=== PATIENT | female | born 1980 | race Caucasian/White ===

== ENCOUNTER 2017-07-04 07:15 | Day surgery (SDC) | payer MEDICAID, OTHER ==
[2017-07-04 08:41] LABS: ADD MAN DIFF? NO
[2017-07-04 08:43] LABS: BASOPHIL # 0.1 10^3/ul (0.0-0.1); BASOPHILS % 0.5 % (0.0-2.0); EOSINOPHILS # 1.4 10^3/ul (0.0-0.5); EOSINOPHILS % 6.5 % (0.0-7.0); HEMATOCRIT 40.4 % (37.0-47.0); HEMOGLOBIN 13.7 g/dl (12.0-16.0); LYMPHOCYTES # 4.2 10^3/ul (0.8-2.9); LYMPHOCYTES % 19.5 % (15.0-51.0); MEAN CORPUSCULAR HEMOGLOBIN 30.9 pg (29.0-33.0); MEAN CORPUSCULAR HGB CONC 33.9 g/dl (32.0-37.0); MEAN PLATELET VOLUME 11.4 fl (7.4-10.4); MONOCYTES % 4.9 % (0.0-11.0); NEUTROPHIL # 14.6 10^3/ul (1.6-7.5); NEUTROPHILS % 68.2 % (39.0-77.0); PLATELET COUNT 281 10^3/UL (140-415); RED BLOOD COUNT 4.44 10^6/ul (4.20-5.40); RED CELL DISTRIBUTION WIDTH 13.2 % (11.5-14.5)
[2017-07-04 08:43] LABS: WHITE BLOOD COUNT 21.3 10^3/ul (4.8-10.8)
[2017-07-04 09:51] LABS: ADD MAN DIFF? NO; BASOPHIL # 0.1 10^3/ul (0.0-0.1); BASOPHILS % 0.4 % (0.0-2.0); EOSINOPHILS # 0.8 10^3/ul (0.0-0.5); EOSINOPHILS % 4.2 % (0.0-7.0); HEMATOCRIT 35.4 % (37.0-47.0); HEMOGLOBIN 11.9 g/dl (12.0-16.0); LYMPHOCYTES # 3.4 10^3/ul (0.8-2.9); MEAN CORPUSCULAR HEMOGLOBIN 30.5 pg (29.0-33.0); MEAN CORPUSCULAR HGB CONC 33.6 g/dl (32.0-37.0); MEAN CORPUSCULAR VOLUME 90.8 fl (82.0-101.0); MONOCYTE # 0.8 10^3/ul (0.3-0.9); MONOCYTES % 4.2 % (0.0-11.0); NEUTROPHIL # 14.6 10^3/ul (1.6-7.5); NEUTROPHILS % 73.7 % (39.0-77.0); PLATELET COUNT 224 10^3/UL (140-415); RED CELL DISTRIBUTION WIDTH 13.2 % (11.5-14.5)
[2017-07-04 09:51] LABS: WHITE BLOOD COUNT 19.7 10^3/ul (4.8-10.8)
[2017-07-04] MEDS: SODIUM CHLORIDE 0.9% 1L BAG IV* (09:57)
[2017-07-04] MEDS ORDERED: NACL 0.9% 3 ML SYG IV ×2 (10:00→13:00)
[2017-07-04 10:07] LABS: INR 1.01; PROTIME 13.4 Sec (11.9-14.9)
[2017-07-04] MEDS: CEFAZOLIN 2 GM/50 ML (PMX) 50 ML IVPB ×3 (10:13→21:30)
[2017-07-04 10:15] LABS: LACTIC ACID 1.5 mmol/L (0.5-2.0)
[2017-07-04 10:17] LABS: ANION GAP 16 (8-16); BLOOD UREA NITROGEN 9 mg/dl (7-20); CALCIUM 8.6 mg/dl (8.4-10.2); CARBON DIOXIDE 24 mmol/L (21-31); CHLORIDE 108 mmol/L (97-110); CREATININE 0.63 mg/dl (0.44-1.00); GLUCOSE 114 mg/dl (70-220); POTASSIUM 3.8 mmol/L (3.5-5.1); SODIUM 144 mmol/L (135-144)
[2017-07-04] MEDS ORDERED: HYDROmorphONE (0.2 MG/ML) 10ML SYG IV ×3 (10:30)
[2017-07-04] MEDS ORDERED: EPHEDrine SULFATE 50 MG/5 ML SYG IV (10:30)
[2017-07-04] MEDS ORDERED: MEPERIDINE 25 MG INJ IV (10:30)
[2017-07-04] MEDS ORDERED: DIPHENHYDRAMINE 50 MG INJ IV (10:30)
[2017-07-04] MEDS ORDERED: ONDANSETRON 4 MG INJ IV ×2 (10:30→13:00)
[2017-07-04] MEDS ORDERED: PROPOFOL 20 ML (10:43)
[2017-07-04] MEDS ORDERED: MIDAZOLAM 1 MG/ML 2 ML INJ (10:43)
[2017-07-04] MEDS ORDERED: METOCLOPRAMIDE 10 MG INJ (10:43)
[2017-07-04] MEDS ORDERED: ONDANSETRON 4 MG INJ (10:44)
[2017-07-04] MEDS ORDERED: KETOROLAC 30 MG INJ (10:44)
[2017-07-04] MEDS ORDERED: ETOMIDATE 20 MG INJ (10:56)
[2017-07-04] MEDS ORDERED: PHENYLephrine (100 MCG/ML) 5ML SYG ×3 (10:57→11:33)
[2017-07-04] MEDS ORDERED: FENTAnyl 50 MCG/ML VIAL (10:57)
[2017-07-04] MEDS ORDERED: ALBUMIN HUMAN 25% 100 ML (11:08)
[2017-07-04] MEDS ORDERED: HYDROCODONE/APAP (5/325) TAB PO (13:00)
[2017-07-04] MEDS ORDERED: IBUPROFEN 600 MG TAB PO (13:00)
[2017-07-04] MEDS ORDERED: DOCUSATE SODIUM 100 MG CAP PO (13:00)
[2017-07-04] MEDS: LACTATED RINGER'S 1,000 ML IV ×3 (13:06→21:30)
[2017-07-04 14:47] LABS: LACTIC ACID 1.3 mmol/L (0.5-2.0)
[2017-07-04 17:11] LABS: ADD MAN DIFF? NO
[2017-07-04 17:14] LABS: WHITE BLOOD COUNT 15.1 10^3/ul (4.8-10.8)
[2017-07-04 17:14] LABS: BASOPHIL # 0.1 10^3/ul (0.0-0.1); BASOPHILS % 0.5 % (0.0-2.0); EOSINOPHILS # 0.5 10^3/ul (0.0-0.5); EOSINOPHILS % 3.1 % (0.0-7.0); HEMATOCRIT 25.7 % (37.0-47.0); HEMOGLOBIN 8.7 g/dl (12.0-16.0); LYMPHOCYTES # 3.4 10^3/ul (0.8-2.9); LYMPHOCYTES % 22.2 % (15.0-51.0); MEAN CORPUSCULAR HEMOGLOBIN 30.9 pg (29.0-33.0); MEAN CORPUSCULAR HGB CONC 33.9 g/dl (32.0-37.0); MEAN CORPUSCULAR VOLUME 91.1 fl (82.0-101.0); MEAN PLATELET VOLUME 10.9 fl (7.4-10.4); MONOCYTE # 0.8 10^3/ul (0.3-0.9); MONOCYTES % 5.1 % (0.0-11.0); NEUTROPHIL # 10.4 10^3/ul (1.6-7.5); NEUTROPHILS % 68.8 % (39.0-77.0); PLATELET COUNT 205 10^3/UL (140-415); RED BLOOD COUNT 2.82 10^6/ul (4.20-5.40); RED CELL DISTRIBUTION WIDTH 13.3 % (11.5-14.5)
[2017-07-04 17:32] LABS: LACTIC ACID 1.1 mmol/L (0.5-2.0)
[2017-07-04] MEDS ORDERED: METHYLERGONOVINE 0.2 MG INJ (18:03)
[2017-07-05] MEDS: LACTATED RINGER'S 1,000 ML IV ×3 (04:00→11:16)
[2017-07-05] MEDS: CEFAZOLIN 2 GM/50 ML (PMX) 50 ML IVPB ×2 (05:09→13:22)
[2017-07-05 05:22] LABS: ADD MAN DIFF? NO
[2017-07-05 05:28] LABS: BASOPHILS % 0.4 % (0.0-2.0); EOSINOPHILS # 0.8 10^3/ul (0.0-0.5); EOSINOPHILS % 7.5 % (0.0-7.0); HEMOGLOBIN 8.1 g/dl (12.0-16.0); LYMPHOCYTES # 3.3 10^3/ul (0.8-2.9); LYMPHOCYTES % 32.8 % (15.0-51.0); MEAN CORPUSCULAR HEMOGLOBIN 30.9 pg (29.0-33.0); MEAN CORPUSCULAR HGB CONC 33.8 g/dl (32.0-37.0); MEAN CORPUSCULAR VOLUME 91.6 fl (82.0-101.0); MEAN PLATELET VOLUME 11.2 fl (7.4-10.4); MONOCYTE # 0.6 10^3/ul (0.3-0.9); MONOCYTES % 5.5 % (0.0-11.0); NEUTROPHIL # 5.3 10^3/ul (1.6-7.5); NEUTROPHILS % 53.4 % (39.0-77.0); PLATELET COUNT 200 10^3/UL (140-415); RED BLOOD COUNT 2.62 10^6/ul (4.20-5.40); RED CELL DISTRIBUTION WIDTH 13.7 % (11.5-14.5)
== END 2017-07-05 13:43 | disposition home or self-care (01) ==
LOC: SDS 07-05 13:43 → FTE 07:15 → SDS 10:40 → MS1 13:00
DX: O03.4 Incomplete spontaneous abortion without complication (principal)
CPT/HCPCS: 36415; 76801; 76817; 80048; 82962; 83605; 84702; 85025; 85610; 85730; 86850; 86900; 86901; 87040; 88305; 93005; 96374; 99285-25